=== PATIENT | female | born 1980 | race African-American/Black ===

== ENCOUNTER 2016-08-02 22:20 | Emergency (ER) | payer MEDICAID ==
[~2016-08-02] VITALS: Ht 154.9 cm; Wt 98.4 kg
[~2016-08-02 22:20] MED LIST: BUS10T; DOCU-94 PO; FERR325T50 PO; LABE200T18 PO; PREN-129 OR
[2016-08-02 23:05] LABS: Basophils # (auto) 0 uL; DEFINITIVE VIEW TRANSMISSION; Eosinophils # (auto) 0.1 uL; Hemoglobin 10.4 g/dL (12.2-16.2); Monocytes # (auto) 0.5 uL
[2016-08-02 23:23] LABS: Basophils % (auto) 0.5 % (0.0-2.0); Eosinophils % (auto) 1.5 % (0.0-7.0); Hematocrit 31.8 % (36.0-46.0); Lymphocytes # (auto) 2.1 uL; Lymphocytes % (auto) 27.2 % (10.0-50.0); Mean Corpuscular Hemoglobin 24.3 pg (28.0-32.0); Mean Corpuscular Hgb Conc. 32.8 g/dL (32.0-36.0); Mean Corpuscular Volume 74.3 fL (80.0-100.0); Mean Platelet Volume 9.4 fL (7.4-10.4); Monocytes % (auto) 6.3 % (0.0-12.0); Neutrophils % (auto) 64.5 % (37.0-80.0); Platelet Count (auto) 308 10^3/uL (140-450); Red Cell Distribution Width 18.9 % (11.6-16.0); White Blood Cell 7.8 10^3/uL (4.4-10.8)
[2016-08-02 23:26] LABS: INR 0.92 (0.9-1.15); Partial Thromboplastin Time 24.9 sec (22.64-33.71)
[2016-08-02 23:30] LABS: Albumin 3.1 g/dL (3.4-5.0); BUN/Creatinine Ratio 15.7; Calcium 8.3 mg/dL (8.5-10.1); Potassium 3.6 mmol/L (3.5-5.1)
[2016-08-02 23:32] LABS: Bilirubin, Total 0.3 mg/dL (0.2-1.0); Total Protein 6.8 g/dL (6.4-8.2)
[2016-08-03 00:16] LABS: Urine Bilirubin Negative (Negative); Urine Blood 3+ /uL (Negative); Urine Color Yellow (Yellow); Urine Glucose Normal (Normal); Urine Ketone Negative (Negative); Urine Nitrite Negative (Negative); Urine RBC 26 /hpf (0 - 4); Urine Urobilinogen Normal (Negative); Urine pH 6.5 (5.0-8.0)
[2016-08-03 00:17] LABS: Urine Squamous Epithelial Cell FEW /hpf (<5)
[2016-08-03] MEDS ORDERED: SODIUM CHLORIDE 0.9% 1,000 ML IV ONE (01:30)
[2016-08-03 04:18] VITALS: BP 144/90
== END 2016-08-03 04:36 | disposition home or self-care (01) ==
LOC: ER 22:24
DX: N92.0 Excessive and frequent menstruation with regular cycle (principal); D64.9 Anemia, unspecified; Z79.899 Other long term (current) drug therapy
CPT/HCPCS: 36415; 80053; 81001; 81025; 84702; 85025; 85610; 85730; 96360; 99284; J7030

== ENCOUNTER 2018-08-17 16:07 | Emergency (ER) | payer MEDICAID ==
[~2018-08-17] VITALS: Ht 154.9 cm; Wt 97.5 kg
[2018-08-17 18:49] VITALS: BP 168/98
== END 2018-08-17 20:52 | disposition home or self-care (01) ==
LOC: ER 16:08
DX: S30.1XXA Contusion of abdominal wall, initial encounter (principal); M25.572 Pain in left ankle and joints of left foot; M25.532 Pain in left wrist; R19.7 Diarrhea, unspecified; R51 Headache; E11.9 Type 2 diabetes mellitus without complications; I10 Essential (primary) hypertension; Z79.899 Other long term (current) drug therapy; V49.9XXA Car occupant (driver) (passenger) injured in unspecified traffic accident, initial encounter; Y93.89 Activity, other specified; Y99.8 Other external cause status; Y92.488 Other paved roadways as the place of occurrence of the external cause
CPT/HCPCS: 73130; 73610; 74176; 81025